=== PATIENT | female | born 1980 | race Caucasian/White ===

== ENCOUNTER 2016-11-13 16:33 | Emergency (ER) | payer OTHER ==
[2016-11-13] MEDS ORDERED: Lidocaine 2% VISCOUS* 15 ML UDC PO ONE (17:21)
[2016-11-13] MEDS ORDERED: Al Hydrox/Mg Hydrox/Simet LIQ* 30 ML UDC PO ONE (17:21)
[2016-11-13] MEDS ORDERED: Ondansetron INJ* 2 MG/ML VIAL IV ONE (17:21)
[2016-11-13 17:34] LABS: Hematocrit 43 % (35-47); Hemoglobin 14.6 g/dl (12.0-16.0); Mean Corpuscular HGB Conc 34 g/dl (31-36); Mean Corpuscular Hemoglobin 27 pg (27-31); Mean Corpuscular Volume 81 fL (80-97); Mean Platelet Volume 7 um3 (7.4-10.4); Red Blood Count 5.32 10^6/ul (4.0-5.4); Red Cell Distribution Width 14 % (10.5-15); White Blood Count 16.8 10^3/ul (3.5-10.8)
--- NOTE | 2016-11-13 17:36 | ED ---
Abdominal Pain/Female - HPI Summary HPI Summary: 36 F w/ no PMH presents with LUQpain for a day. She says the pain radiates up to her chest. She admits to nausea. She denies any vomiting or diarrhea. She had a normal BM at 12 pm. She denies any history of GI issues except for inguinal hernia that was surgical fixed. She does not have a history of GERD. Her children were sick with a GI bug yesterday that resulted in n/v/d. She denies any fever, dysuria, hematuria, blood in stool, or vaginal discharge. She denies any shortness of breath. She does not smoke, no swelling or pain in her calf, no history of blood clots, no history of cancer, no family history of blood clots, no recent travel and is not on an OCP. LMP was a week okay. - History of Current Complaint Chief Complaint: EDAbdPain Stated Complaint: LT SIDE ABD PAIN Time Seen by Provider: 11/13/16 17:13 Pain Intensity: 7 Allergies/Adverse Reactions: Allergies Allergy/AdvReac Type Severity Reaction Status Date / Time Ibuprofen Allergy Bleeding Verified 11/13/16 16:36 PMH/Surg Hx/FS Hx/Imm Hx Endocrine/Hematology History: Reports: Other Endocrine/Hematological Disorders - empty sella syndrome Denies: Hx Diabetes Cardiovascular History: Denies: Hx Hypertension, Hx Pacemaker/ICD Musculoskeletal History: Reports: Hx Bursitis - BILAT HIPS Sensory History: Reports: Hx Contacts or Glasses - GLASSES Denies: Hx Hearing Aid Opthamlomology History: Reports: Hx Contacts or Glasses - GLASSES Psychiatric History: Denies: Hx Panic Disorder - Surgical History Surgery Procedure, Year, and Place: 2 HERNIA SURGERIES A CHILD Hx Anesthesia Reactions: No Infectious Disease History: No Infectious Disease History: Denies: History Other Infectious Disease, Traveled Outside the [place] in Last 30 Days - Family History Known Family History: Positive: Cardiac Disease - nothing below age 50, Other - no history of blood clots - Social History Alcohol Use: Rare Alcohol Amount: WINE ON OCCASION Substance Use Type: Reports: None Smoking Status (MU): Never Smoked Tobacco Review of Systems Negative: Fever Positive: Chest Pain Negative: Shortness Of Breath Positive: Abdominal Pain - LUQ, Nausea. Negative: Vomiting, Diarrhea Negative: dysuria All Other Systems Reviewed And Are Negative: Yes Physical Exam Triage Information Reviewed: Yes Vital Signs On Initial Exam: Initial Vitals Temp Pulse Resp BP Pulse Ox 98.2 F 89 16 126/77 100 11/13/16 16:36 11/13/16 16:36 11/13/16 16:36 11/13/16 16:36 11/13/16 16:36 Vital Signs Reviewed: Yes Appearance: Positive: Pain Distress Skin: Positive: Warm, Dry Head/Face: Positive: Normal Head/Face Inspection Eyes: Positive: Normal, Conjunctiva Clear ENT: Positive: Normal ENT inspection, Pharynx normal, TMs normal Respiratory/Lung Sounds: Positive: Clear to Auscultation, Breath Sounds Present Cardiovascular: Positive: Normal, RRR Abdomen Description: Positive: Soft, Other: - diffuse tenderness greatest in LUQ , no rebound tenderness. Negative: Guarding Bowel Sounds: Positive: Present - [place] Coma Scale Coma Scale Total: 15 Diagnostics - Vital Signs Vital Signs Temp Pulse Resp BP Pulse Ox 11/13/16 16:36 98.2 F 89 16 126/77 100 - Laboratory Result Diagrams: 11/13/16 17:15 11/13/16 17:15 Lab Statement: Any lab studies that have been ordered have been reviewed, and results considered in the medical decision making process. - EKG 1st Cardiac Rate: Tachycardia EKG Rhythm: Sinus Tachycardia ST Segment: Normal Ectopy: None Re-Evaluation - Re-Evaluation First Eval Re-Evaluation Time: 17:45 Change: Improved Comment: no longer nauseous but pain the same Second Eval Re-Evaluation Time: 19:00 Change: Improved Comment: pain is 6/10. Third Eval Re-Evaluation Time: 19:42 Change: Improved Comment: pain is still 4/10 but is ready d/c Abdominal Pain Fem Course/Dx - Course Course Of Treatment: 36 F presents with LUQ pain starting today. Pain radiates to her chest. admits to nausea. denies any vomiting or diarrhea. No SOB. EKG sinus tachycardia likely due to pain as HR 80 after pain medication. Troponin normal so do not suspect ACS. no risk factors for PE: no calf pain or swelling, recent travel, not on OCP, nonsmoker no family history of DVT so do not suspect PE. on exam diffused tenderness but greatest in LUQ. discussed that have seen many patients with week similiar symptoms of abdominal pain and the fact that children had GI bug the day before makes me more likely to think this is viral. WBC elevated but CRP not as elevated. do not suspect gallbladder or appendicitis. Offered CT for definitive study but patient declined. told if pain locailized to RLQ or RUQ to return. will give zofran for d/c home. Patient agrees with plan - Diagnoses Differential Diagnosis: Positive: Appendicitis, Gall Bladder Disease, Pancreatitis, Urinary Tract Infection Provider Diagnoses: Abdominal pain Discharge - Discharge Plan Condition: Stable Disposition: HOME Prescriptions: Ondansetron ODT TAB* [Zofran Odt TAB*] 4 mg PO Q6H PRN #16 tab.odt PRN Reason: Nausea Patient Education Materials: Acute Abdominal Pain (ED) Referrals: Andrew Steele RPA [Primary Care Provider] - Additional Instructions: Can take Zofran every 6 hours as needed for nausea Drink small amounts of fluid as tolerated When able to eat follow BRAT diet: Bananas, rice, applesauce, toast Take Tylenol for pain as needed every 6 hours Follow up with primary within 5 days Return to ED if abdominal pain that localizes to right lower or upper quadrant or any new or worsening symptoms
[2016-11-13 18:01] LABS: Albumin 4.3 g/dL (3.2-5.2); BUN/Creatinine Ratio 34.8 (8-20); Calcium 9.4 mg/dL (8.6-10.3); EGFR African American 129.6 (>60); EGFR Non-African American 100.8 (>60); Potassium 3.6 mmol/L (3.5-5.0); Total Bilirubin 0.5 mg/dL (0.2-1.0); Total Protein 7.3 g/dL (6.4-8.9)
[2016-11-13] MEDS ORDERED: NS 0.9% 1000 ML* 1,000 ML IV ONE (18:02)
[2016-11-13] MEDS ORDERED: Morphine INJ* 2 MG/ML 1 ML CARPUJECT IV ONE (18:03)
[2016-11-13] MEDS ORDERED: Morphine INJ* 4 MG/ML 1 ML CARPUJECT IV ONE (18:55)
[2016-11-13] MEDS ORDERED: Ondansetron ODT TAB* 4 MG PO ONE (19:39)
[2016-11-13 20:05] VITALS: BP 109/69
== END 2016-11-13 20:16 | disposition home or self-care (01) ==
LOC: ED 16:33
DX: R10.12 Left upper quadrant pain (principal); R07.9 Chest pain, unspecified; R11.0 Nausea
CPT/HCPCS: 36415; 80053; 83690; 84484; 84702; 85025; 86141; 93005; 96374; 96375; 99283; A9270-GY; J2270; J2405

== ENCOUNTER 2016-11-19 16:43 | Emergency (ER) | payer OTHER ==
[2016-11-19 17:11] VITALS: BP 136/91
== END 2016-11-19 17:50 | disposition left against medical advice (07) ==
LOC: ED 16:43
DX: R10.9 Unspecified abdominal pain (principal); Z53.21 Procedure and treatment not carried out due to patient leaving prior to being seen by health care provider
CPT/HCPCS: 99281

== ENCOUNTER 2017-11-25 06:40 | Day surgery (SDC) | payer OTHER ==
--- NOTE | 2017-11-04 08:58 | HP ---
PREOPERATIVE HISTORY AND PHYSICAL: DATE OF ADMISSION/SURGERY: 11/25/17. - OR EAST DATE OF OFFICE VISIT: 11/01/17 ATTENDING SURGEON: Dr. Nolberto Daniels.* (DICTATED BY EYAD LIZARRAGA) PROCEDURE: Left knee arthroscopy, anterior cruciate ligament reconstruction, possible chondroplasty and quadriceps autograft. CHIEF COMPLAINT: Left knee. HISTORY OF PRESENT ILLNESS: Malini is a 37-year-old female, who is referred to us by Dr. Garcia. She was pushing her car that was stuck in the snow, on when she felt a pop and severe pain in her knee. She had difficulty weightbearing right away. She noted a significant swelling in the knee the next day. She states that she currently has knee pain under her patella and the medial aspect of her knee. It is slowly improving since the injury. She does state that it gives out on her especially with going down stairs and getting out of a car. She does state that her range of motion has improved. She reports intermittent catching. She is taking meloxicam and tramadol to help with the pain. She does not play sports, however, is applying for the academy only to be able to run, jump and cut in the future. She denies any patellar dislocations of the left knee. She denies any prior injuries or surgery to the left knee. She denies numbness, tingling, fever, chills, and is doing well otherwise. PAST MEDICAL HISTORY: Back pain. PAST SURGICAL HISTORY: 1. Hernia repair x2. 2. Right knee arthroscopy. The patient reports nausea and anxiety with anesthesia, otherwise no major complications with anesthesia. MEDICATIONS: 1. Meloxicam 15 mg one by mouth every day. 2. Tramadol 50 mg one by mouth every 6 hours as needed for pain. ALLERGIES: No known drug allergies. FAMILY HISTORY: Positive for diabetes, heart disease, and cancer. SOCIAL HISTORY: She lives with her partner and children. She reports occasional alcohol consumption. She denies tobacco use. She is a inside sales agent at [employer] REVIEW OF SYSTEMS: A 14-point review of systems was reviewed with the patient. Positive for current complaint, otherwise negative. Denies chest pain, shortness of breath, fever, chills, history of bleeding disorder and history of DVT or PE. PHYSICAL EXAMINATION GENERAL: A 37-year-old, well-developed, well-nourished female, in no acute distress. Alert and oriented 3. Appropriate mood and affect. VITALS SIGNS: Height 70, weight 255, pulse 84, blood pressure 118/78, respiratory rate 20, temperature 97.5, BMI 36.6. HEENT: Normocephalic, atraumatic. PERRLA. Throat: Clear. NECK: Supple. PULMONARY: Lungs are clear to auscultation bilaterally. No wheezing, rhonchi, or rales. CARDIO: Regular rate and rhythm. S1, S2. No murmurs, gallops, or rubs. No edema. ABDOMEN: Positive bowel sounds, soft, nontender. MUSCULOSKELETAL: Left lower extremity, the skin is intact. No warmth or erythema. Mild effusion. Tenderness to palpation over the patellar tendon as well as the medial patella facet. Pain with patellar compression. Mild tenderness to palpation over the medial and lateral joint lines. Range of motion 0 to 130 degrees, stable varus and valgus stress. She has got a 2A Alysia with an endpoint. Negative posterior drawer. Mildly positive Carlos' s. Calf is soft and nontender. +2 PT pulse. Sensation intact to light touch distally. Right lower extremity, the skin is intact. No warmth or erythema. Nontender to palpation. Full pain-free range of motion. Stable ligaments. Neurovascularly intact. NEURO: Alert and oriented x3. Cranial nerves grossly intact. Sensation intact to light touch. DIAGNOSTIC STUDIES: X-ray and MRI reveal a [id number] ACL tear with bone bruising over the posterior tibial plateau, increased signal in the posterolateral meniscus and cystic changes in the undersurface of the patella with cartilage loss. IMPRESSION: Left knee anterior cruciate ligament tear, possible meniscus tear, chondromalacia patella and patellar tendonitis. PLAN: Malini is a 37-year-old female, who presented to the clinic with left knee pain and instability due to patellar tendonitis, possible meniscus tear, lesion under her patella as well as patellar tendonitis. Conservative treatment versus surgical treatment was discussed with the patient. It was explained to the patient, she is at 4 to 10 increased risk of osteoarthritis in the future just due to the injury. It was explained to the patient that she has an endpoint on exam, therefore, the instability could improve without surgery; however, the patient does not want to wait. Dr. Daniels recommended doing PT for few weeks to differentiate instability of the ACL versus the patella as the main source of the discomfort for the patient. However, the patient would like to schedule surgery and have it done sooner than later for working purposes. 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 She has agreed to undergo a left knee arthroscopy anterior cruciate ligament reconstruction, possible chondroplasty with quad autograft with Dr. Daniels, on 11/25/17. Risks of surgery to include infection, bleeding, injury to blood vessels, nerves, surrounding structures, stiffness, need for further surgery, DVT, PE, and numbness were discussed with the patient. Graft options were also discussed with the patient and it was decided that the patient would like to do autograft since the recovery is quicker. It was discussed that the patellar tendon is not a great graft option since she has patellar tendonitis. Therefore, the patient would like a quadriceps autograft. Dr. Daniels expressed her concern for not waiting for surgery; however, the patient would like to undergo surgery at this time. She will follow up in 6 to 8 days postop for followup and suture removal. Percocet was sent to the patient's pharmacy for postop pain management. EYAD LIZARRAGA [id number]/[facility] #: [id number] MTDStephane
[~2017-11-25 06:40] MED LIST: Buffered Lidocaine 0.9% SYRIN* 5 ML/SYR SYRINGE INTRADERM ONE; Dexamethasone IV* 4 MG/ML 1 ML (4 MG) IV SLOW PU ONE; Dexamethasone IV* 4 MG/ML 1 ML (4 MG) ONE; Famotidine IV* 10 MG/ML 2 ML (20 mg) IV ONE; Famotidine IV* 10 MG/ML 2 ML (20 mg) ONE; Scopolamine 1.5 mg* PATCH TRANSDERM ONE; ceFAZolin 2 GM in 100 MLS NS (*) BAG IVPB ONE
[2017-11-25] MEDS ORDERED: Lidocaine 2% PF * 5 ML VIAL ONE (06:54)
[2017-11-25] MEDS ORDERED: Midazolam* 1 MG/ML 2 ML VIAL (2 MG) ONE ×2 (06:54→07:37)
[2017-11-25] MEDS ORDERED: Propofol* 10 MG/ML 20 ML BTL IV PUSH ONE ×2 (06:54→09:41)
[2017-11-25] MEDS ORDERED: fentaNYL* 50 MCG/ML 2 ML VIAL (100 MCG VIAL) ONE ×2 (06:54→10:07)
[2017-11-25] MEDS ORDERED: methylPREDNISolone ACETATE 80* 80 MG/ML 1 ML VIAL ONE (07:12)
[2017-11-25] MEDS ORDERED: Lidocaine 1% MPF wEPI 200,000* 30 ML SDV ONE (07:13)
[2017-11-25] MEDS ORDERED: Bupivacaine 0.25% SDV* 30 ML ONE (07:13)
[2017-11-25] MEDS ORDERED: Scopolamine 1.5 mg* PATCH ONE (07:14)
[2017-11-25] MEDS ORDERED: PROCHLORPERAZINE INJ 5 MG/ML 2 ML VIAL IV PRN (08:15)
[2017-11-25] MEDS ORDERED: HYDROmorphone INJ* 1 MG/ML CARPUJECT SYRINGE IV PRN (08:15)
[2017-11-25] MEDS ORDERED: Naloxone* 0.4 MG/ML 1 ML VIAL IV PRN (08:15)
[2017-11-25] MEDS ORDERED: Ondansetron INJ* 2 MG/ML VIAL IV PRN (08:15)
[2017-11-25] MEDS ORDERED: diPHENhydraMINE IV* 50 MG/ML 1 ml VIAL (BENADRYL) IV PRN (08:15)
[2017-11-25] MEDS ORDERED: HYDROmorphone INJ* 1 MG/ML CARPUJECT SYRINGE ONE (08:39)
[2017-11-25] MEDS ORDERED: Ondansetron INJ* 2 MG/ML VIAL ONE (09:42)
[2017-11-25] MEDS: fentaNYL* 50 MCG/ML 2 ML VIAL (100 MCG VIAL) IV PRN ×2 (10:11→10:39)
[2017-11-25] MEDS ORDERED: PROCHLORPERAZINE INJ 5 MG/ML 2 ML VIAL ONE (10:16)
[2017-11-25] MEDS ORDERED: oxyCODONE/Acetamin 5/325 MG* TAB ONE (10:48)
[2017-11-25] MEDS: oxyCODONE/Acetamin 5/325 MG* TAB PO PRN ×2 (10:50→10:53)
[2017-11-25 11:36] VITALS: BP 147/83
[2017-11-28] MEDS ORDERED: Scopolamine PATCH Remove* 1 NOTE MISC PATCH OFF ONE (06:00)
--- NOTE | 2017-11-30 11:19 | OP ---
CC: PCP OPERATIVE REPORT: DATE OF OPERATION: 11/25/17 DATE OF : 78 SURGEON: Nolberto Daniels MD COOPERATIVE EDUCATION COORDINATOR: EYAD Dasilva Utilization Review Coordinator was needed for the entire case to help with positioning, retraction, and was utilized throughout all portions of the case. ANESTHESIOLOGIST: Dr. Roberson. ANESTHESIA: General. PRE-OP DIAGNOSIS: Left knee grade 3 ACL rupture with medial meniscus tear. POST-OP DIAGNOSES: Grade 3 ACL rupture with patellar chondrosis, intact medial meniscus, lateral meniscal fraying with lateral tibial plateau chondrosis. OPERATIVE PROCEDURE: Left knee arthroscopy with ACL reconstruction using quad autograft, partial lateral meniscectomy, chondroplasty of the lateral tibial plateau and patellofemoral joint. COMPLICATIONS: None. ESTIMATED BLOOD LOSS: Minimal. TOURNIQUET TIME: 24 minutes at 250 mmHg. IMPLANTS USED: One [employer] SoftSilk 7 x 25 and one 10 x 25 mm BioComposite screw. INDICATIONS: Malini Christensen is a 37-year-old female who sustained an injury to her knee while she was pushing her car in early September. She failed conservative management. She has persistent instability of the knee and swelling. She has tried a short course of physical therapy and would like to proceed with surgical treatment. The risks and benefits of surgery were discussed at length to include, but are not limited to, bleeding, infection, damage to nerves, vessels, surrounding structures, wound nonhealing, persistent pain, need for further surgery, scarring, stiffness, incomplete relief of symptoms, and risks of anesthesia. DESCRIPTION OF PROCEDURE: The patient was greeted in the preoperative area by the attending surgeon. The correct extremity was marked, and the consent was confirmed. The patient was brought back to the operating suite. She was placed in the supine position on the operating room table. She underwent general anesthesia and LMA intubation, after which she was appropriately positioned on the bed. The lateral post was positioned as well as a small 10- pound sand bag at the end of the bed to keep the knee at 90. The left leg was then prepped and draped in the usual sterile fashion beginning with chlorhexidine soap, scrub, and alcohol wipe, and a final prep with ChloraPrep. After appropriate surgical pause indicating site, side, procedure, and administration of antibiotics, the knee was intra-articularly injected with 1% lidocaine with epi. An Esmarch was used to exsanguinate the limb. A sterile tourniquet was then placed and was inflated to 250 mmHg. A midline incision centered over the quadriceps tendon distally was then made with a 15 blade. Soft tissues were carefully dissected to expose the quadriceps tendon. The center 9 mm was harvested in a full-thickness fashion using a 10 blade to a length of about 6 to 10 cm of soft tissue and then 23 mm of bone distally. The bone loss was found to be 9 x 23 to 25 mm. This was harvested using a sagittal saw. An osteotome was used to loosen the block and the graft was then prepared in the back table by the assistant professor of biology surgeon. Total length of the graft was about 8.5 to 9 cm. The assistant professor of biology prepared the graft, the surgeon then closed the quadriceps harvest site in full thickness by the tendon with 0 Vicryl in an interrupted fashion. At this point, the tourniquet was deflated. The knee was placed at 90 degrees. The anterolateral portal was then made sharply with an 11 blade. The scope was introduced into the joint and the joint was examined. There was abundant fat pad present. There was synovitis and inflammation in the joint. Patellofemoral joint had grade 2 changes with unstable flaps. The medial and lateral gutters were examined without any loose debris. The scope was brought into the notch. There was evidence of scarring of the ACL but it was incompetent. The PCL was intact. The scope was brought into the medial compartment. The medial femoral condyle had grade 0 to 1 change. Medial plateau had grade 0 to 1 change. Medial meniscus was probed, found to be intact. The lateral compartment was examined. There were grade 2 changes with unstable flaps of the lateral plateau. Lateral meniscus had fraying as well as partial tearing at the root, which was debrided back using a shaver. The lateral femoral condyle had grade 0 to 1 changes. Attention was then directed to the ACL. The biters and otis were used to remove the ACL fragments. The lateral wall was then skeletonized using electrocautery device on the provisional footprint. The femoral tunnel was then marked with an starting awl . This was then checked by changing the scope from the lateral to the medial compartment. The attention was then directed to the tibial tunnel. With the tib-fib guide set at 50 degrees, a separate incision was made using a 15 blade. The soft tissues were carefully dissected. The tib-fib guide was placed again and the guidewire was drilled to the center of the footprint. Once the guidewire was appropriately positioned, it was overdrilled with size 10 mm full-bore reamer. Excess bone was saved for bone graft to the patellar defect. The tunnel was then carefully rasped and the soft tissue was carefully removed and a carrot was placed to prevent fluid egress. Attention was directed to the femoral tunnel. The knee was hyperflexed. The Iyer [employer] Nephew straight guide was then placed in the center of the footprint. The beath pin was then drilled under arthroscopic visualization in the center of the footprint. This was overdrilled with a 9 mm low profile reamer to the appropriate depth. The excess bone and debris were removed. The tunnel was found to have a good back wall and excess bone was removed. Once we appropriately visualized the notch, the #2 Ethibond suture was then passed through the eyelet of the Beath pin and it was then advanced to the wound and then back through the tibial tunnel. The graft which had been placed on appropriate tension on the back table to remove creep was then brought to the table and passed under arthroscopic visualization and well seated in the femoral tunnel. At this point, a size 7 x 25 mm SoftSilk screw was then used to secure the graft. The knee was then taken through extension and found to have no impingement anteriorly. The knee was then cycled approximately 15 times with no loosening of the graft. The scope was brought back to the joint to check the visualization. The knee was then placed in approximately 20 degrees of flexion with tension on the tibial sutures. The graft was secured with a 10 x 25 mm BioComposite screw. The knee was then taken through range of motion. Alysia was assessed and found to be stable. The scope was brought back to the joint and the ACL was in good position. Final images were obtained. The wounds were copiously irrigated with sterile saline. The quadriceps wound was closed with 2-0 Vicryl and naomi. The portals were closed with 3-0 nylon and the tibial wound was closed with 2-0 Vicryl and 3-0 Monocryl. Sterile dressings were applied. The knee and the wounds were injected with 0.25% Marcaine plain. Sterile dressings were applied as well as a Cryo/Cuff and a hinged knee brace locked at extension. She was awoken from anesthesia, transferred to PACU in stable condition. POSTOPERATIVE PLAN: She will be weightbearing as tolerated. She will start therapy this week. Discharged with pain medication and antibiotics. I will see the patient back in 10 to 14 days. DVT prophylaxis was considered, but deferred due to no previous personal or family history. [id number]/[facility] #: [id number] MTDD
== END 2017-11-25 11:48 | disposition home or self-care (01) ==
LOC: OREAST 06:40
PROVIDERS: ATTEND Orthopaedic Surgery
DX: S83.512A Sprain of anterior cruciate ligament of left knee, initial encounter (principal); S83.282A Other tear of lateral meniscus, current injury, left knee, initial encounter; X50.0XXA Overexertion from strenuous movement or load, initial encounter; Y92.89 Other specified places as the place of occurrence of the external cause; M93.862 Other specified osteochondropathies, left lower leg; Z68.38 Body mass index [BMI] 38.0-38.9, adult; F41.9 Anxiety disorder, unspecified; M17.11 Unilateral primary osteoarthritis, right knee
CPT/HCPCS: 81025; A9270-GY; C1713; J0780; J1040; J1100; J1170; J2001; J2250; J2405; J2704; J3010

== ENCOUNTER 2018-08-11 11:27 | Day surgery (SDC) | payer OTHER ==
--- NOTE | 2018-08-01 18:00 | HP ---
AMENDED REPORT NOW INCLUDES COSIGNER DESIGNATION PREOPERATIVE HISTORY AND PHYSICAL: DATE OF ADMISSION/SURGERY: 08/11/18 DATE OF OFFICE VISIT: 08/01/18 ATTENDING SURGEON: Dr. Nolberto Daniels.* (DICTATED BY EYAD LIZARRAGA) PROCEDURE: Left knee arthroscopic surgery. CHIEF COMPLAINT: Left knee pain. HISTORY OF PRESENT ILLNESS: Malini is a 38-year-old female, who presents to the clinic status post left knee anterior cruciate ligament reconstruction with quadriceps autograft. Her postop course was complicated with continued pain postoperatively due to scar tissue. She has failed conservative measures to include physical therapy and therefore has agreed to undergo left knee arthroscopic surgery with Dr. Daniels on 08/11/18. PAST MEDICAL HISTORY: Back pain. PAST SURGICAL HISTORY: Hernia repair x2, right knee arthroscopy, left knee ACL reconstruction. The patient reports nausea and anxiety with anesthesia, otherwise no major complications. MEDICATIONS: 1. Methocarbamol 750 mg 1 by mouth daily. 2. Bupropion HCl 150 mg 1 by mouth daily. ALLERGIES: NSAIDS. FAMILY HISTORY: Positive for diabetes, heart disease, and cancer. Denies family history of DVT or PE. SOCIAL HISTORY: She lives with her partner and children. She reports occasional alcohol consumption. She denies tobacco use. 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 She denies illegal drug use. REVIEW OF SYSTEMS: A 14-point review of systems was reviewed with the patient. Positive for current complaint, otherwise negative. Denies fever, chills, chest pain, shortness of breath, history of bleeding disorder, history of DVT or PE. PHYSICAL EXAMINATION GENERAL: A 38-year-old well-developed, well-nourished female, in no acute distress. Alert and oriented x3. VITAL SIGNS: Height 70, weight 255, blood pressure 138/86, respiratory rate 18 , BMI 36.6. HEENT: Normocephalic, atraumatic. PERRLA. Throat clear. NECK: Supple. PULMONARY: Lungs are clear to auscultation bilaterally. No wheezing, rhonchi, or rales. CARDIO: Regular rate and rhythm. S1, S2. No murmurs, gallops, or rubs. No edema. ABDOMEN: Positive bowel sounds. Soft, nontender. NEURO: Alert and oriented x3. Cranial nerves grossly intact. MUSCULOSKELETAL: Left lower extremity: Skin is intact. Well-healed incision. Quad atrophy. No warmth or erythema. No effusion. Range of motion 0 to 135. Stable to varus and valgus stress. Stable Alysia and negative posterior drawer. Tenderness to palpation over her incision. +5/5 strength to ankle dorsiflexion and plantarflexion. +2 DP pulse. Sensation intact to light touch distally. DIAGNOSTIC STUDIES: MRI revealed an intact ACL. The meniscus appears intact. She has mild chondromalacia of the patella and some scar tissue anteriorly. ASSESSMENT AND PLAN: The patient is scheduled to undergo a left knee arthroscopic surgery with Dr. Daniels on 08/11/18 for lysis of adhesions. She will follow up 10 to 14 days postop for followup and suture removal. Percocet will be used for postop pain management, Keflex for antibiotic prophylaxis since she has had a prior knee surgery, and Zofran to prevent nausea postoperatively. EYAD LIZARRAGA [id number]/[facility] #: [id number] MTDStephane
[~2018-08-11 11:27] MED LIST changes: -Dexamethasone IV* 4 MG/ML 1 ML (4 MG) IV SLOW PU ONE; -Dexamethasone IV* 4 MG/ML 1 ML (4 MG) ONE; -Famotidine IV* 10 MG/ML 2 ML (20 mg) IV ONE; -Famotidine IV* 10 MG/ML 2 ML (20 mg) ONE; -Scopolamine 1.5 mg* PATCH TRANSDERM ONE; +ceFAZolin 2 GM PREMIX in ORs 2 GM/50 ML BAG IVPB ONE; -ceFAZolin 2 GM in 100 MLS NS (*) BAG IVPB ONE
[2018-08-11] MEDS ORDERED: fentaNYL* 50 MCG/ML 2 ML VIAL (100 MCG VIAL) ONE (12:03)
[2018-08-11] MEDS ORDERED: Midazolam* 1 MG/ML 5 ML VIAL (5 MG) ONE (12:03)
[2018-08-11] MEDS ORDERED: Scopolamine 1.5 mg* PATCH ONE (13:03)
[2018-08-11] MEDS ORDERED: HYDROmorphone INJ1* 1 MG/ML SYRINGE IV PRN (13:04)
[2018-08-11] MEDS ORDERED: Acetaminophen TAB* 325 MG PO PRN (13:04)
[2018-08-11] MEDS ORDERED: Naloxone* 0.4 MG/ML 1 ML VIAL IV PRN (13:04)
[2018-08-11] MEDS ORDERED: DiMENhydriNATE IV* 50 MG/ML VIAL IV PUSH PRN (13:04)
[2018-08-11] MEDS ORDERED: oxyCODONE TAB* 5 MG TAB PO PRN (13:04)
[2018-08-11] MEDS ORDERED: Lidocain 1% EPI 1:100,000 * 30 ML MDV ONE (13:23)
[2018-08-11] MEDS ORDERED: ROPIVACAINE 5 MG/ML 30 ML BTL (0.5%) ONE (13:23)
[2018-08-11] MEDS ORDERED: Scopolamine 1.5 mg* PATCH TRANSDERM SCH (14:00)
[2018-08-11] MEDS ORDERED: Lidocaine 2% PF * 5 ML VIAL ONE (14:23)
[2018-08-11] MEDS ORDERED: diPHENhydraMINE IV* 50 MG/ML 1 ml VIAL (BENADRYL) ONE (14:23)
[2018-08-11] MEDS ORDERED: Propofol* 10 MG/ML 20 ML BTL IV PUSH ONE (14:23)
[2018-08-11] MEDS ORDERED: Ondansetron INJ* 2 MG/ML VIAL ONE (14:23)
[2018-08-11] MEDS ORDERED: Dexamethasone IV* 4 MG/ML 1 ML (4 MG) ONE (14:23)
[2018-08-11] MEDS ORDERED: Ketorolac INJ* 30 MG/ML 1 ML VIAL ONE (14:23)
[2018-08-11] MEDS ORDERED: oxyCODONE/Acetamin 5/325 MG* TAB ONE (15:28)
[2018-08-11 16:21] VITALS: BP 137/83
--- NOTE | 2018-08-18 20:57 | OP ---
DATE OF OPERATION: 08/11/18 [facility] DATE OF : 78 SURGEON: Nolberto Daniels MD FIELD SERVICE ENGINEER: None available. PRE-OP DIAGNOSIS: Left knee impingement with persistent pain. POST-OP DIAGNOSIS: Left knee impingement with persistent pain. OPERATIVE PROCEDURE: Left knee arthroscopy with partial lateral meniscectomy, synovectomy in anteromedial lateral compartment and chondroplasty of the patellofemoral joint. COMPLICATIONS: None. ESTIMATED BLOOD LOSS: Minimal. INDICATIONS: Malini Christensen is a 38-year-old female who underwent an ACL reconstruction with autograft on 11/25/17. She did really well at first and had some issues with quadriceps related pain. She had failed conservative management. An MRI confirmed that the ACL was intact. Risks and benefits were discussed at length, it included but not limited to bleeding; infection; damage to nerves, vessels, surrounding structures; wound nonhealing; persistent pain; need for surgery; scaring; stiffness; incomplete release of symptoms; risks of anesthesia. DESCRIPTION OF PROCEDURE: The patient was greeted in the preoperative area by the attending surgeon, the correct extremity was marked, consent was confirmed. The patient was brought back to the operating suite where she was placed in a supine position. An unsterile tourniquet was placed high on the proximal thigh. A lateral post was positioned. The left leg was then prepped and draped in the usual sterile fashion beginning with chlorhexidine soap, scrub, and alcohol wipe, and a final prep with ChloraPrep. After appropriate surgical pause indicating site, side, procedure, administration of antibiotics, the knee was intra-articularly injected with 1% lidocaine with epi. The anterolateral portal was made sharply with an 11 blade. Scope was introduced into the joint. The joint was examined. The scope was positioned in the joint. The ACL was intact and had healed very well. The medial and lateral compartments were intact. Medial femoral condyle had some areas of erythema, which was from the scar rubbing against it. There were no loose bodies that were apparent. There was a small cyclops lesion from the ACL , which was debrided back using a shaver and a biter. The medial meniscus was intact. The lateral compartment was examined, there was fraying and small radial tear that was debrided back using otis and biters. There were grade 1 to 2 changes of the lateral plateau, grade 0 to 1 changes of the lateral femoral condyle. The patello-femoral joint had grade 0 change to the trochlea and areas of grade 2 changes with unstable flaps along the patella. The unstable flaps were then debrided back. The place of the previous quadriceps harvest was then visualized and there was no obvious scar tissue that was apparent there. There appeared to be a fully healed, no evidence of a quadriceps defect to indicate the patient's pain, but there was moderate amount of scar about the patellar itself medially, laterally, and inferiorly. This was debrided back using the electrocautery device and the shaver. As the knee was taken through range of motion, there was a small area in the trochlea where there was bubbling of the cartilage, but the cartilage was intact. Final images were obtained. The wound was copiously irrigated. The knee was thoroughly lavaged, removed of any loose debris once the synovectomy was completed. The wounds were closed with 3-0 nylon in an interrupted fashion. Sterile dressings were applied, and a Cryo/Cuff. She was awoken from anesthesia and then transferred to the PACU in stable condition. POSTOPERATIVE PLAN: She will be weightbearing as tolerated, range of motion as tolerated, discharged on pain medications as well as antibiotics due to revision surgery. DVT prophylaxis considered, but deferred due to no previous personal or family history. I will see the patient back in 10 to 14 days. [id number]/[facility] #: [id number] GLYNN
== END 2018-08-11 16:16 | disposition home or self-care (01) ==
LOC: OREAST 11:27
PROVIDERS: ATTEND Orthopaedic Surgery
DX: M25.862 Other specified joint disorders, left knee (principal); F41.8 Other specified anxiety disorders; E66.9 Obesity, unspecified
CPT/HCPCS: 81025; A9270-GY; J0690; J1100; J1200; J1885; J2250; J2405; J2704; J2795; J3010

== ENCOUNTER 2023-11-05 21:15 | Inpatient (IN) ==
[2023-11-05] MEDS ORDERED: Al Hydrox/Mg Hydrox/Simet LIQ 30 ML UDC PO PRN (23:28)
[2023-11-06 08:54] LABS: HDL Cholesterol 49.1 mg/dL
[2023-11-06] MEDS: Vitamin THERAPEUTIC TAB PO SCH (09:02)
[2023-11-06] MEDS: DULoxetine DR 30 mg CAP PO SCH (15:10)
[2023-11-07] MEDS: NORETHINDRONE E ESTRADIOL IRON PO SCH (08:44)
[2023-11-07] MEDS: [UNRECOGNIZED DRUG - OTHER] PO SCH (08:44)
[2023-11-07] MEDS: ATOGEPANT 60 MG PO SCH (08:44)
[2023-11-08] MEDS: DULoxetine DR 60 mg CAP PO SCH (09:02)
[2023-11-08 09:50] VITALS: BP 121/83
[2023-12-04] MEDS ORDERED: GALCANEZUMAB 120 MG/ML SUBCUT SCH (09:00)
== END 2023-11-08 13:00 | disposition home or self-care (01) | DRG 754 ==
LOC: ED 21:15 → EDHOLD 23:14 → BSU 11-06 00:19
PROVIDERS: ADMIT Psychiatry & Neurology Psychiatry; ATTEND Psychiatry & Neurology Psychiatry

== ENCOUNTER 2024-03-20 19:23 | Inpatient (IN) ==
[2024-03-20 20:32] LABS: ABS Basophils 0.1 10^3/uL (0.0-0.1); ABS Eosinophils 0.2 10^3/uL (0.0-0.5); ABS Lymphocytes 2.7 10^3/uL (1.0-4.8); ABS Monocytes 0.8 10^3/uL (0.0-0.9); ABS Neutrophils 4.8 10^3/uL (1.5-7.6); Eosinophil % 2.5 %; Hematocrit 40.7 % (35-45); Hemoglobin 13.8 g/dL (11.5-14.3); Lymphocyte % 31.9 %; Mean Corpuscular Hemoglobin 29.8 pg (27-33); Mean Corpuscular Volume 87.8 fL (80-97); Mean Platelet Volume 7.3 fL (7.5-11.2); Platelet Count 365 10^3/uL (150-450); Red Blood Count 4.63 10^6/uL (3.63-4.92); Red Cell Distribution Width 13.3 % (12-17); White Blood Count 8.5 10^3/uL (3.8-11.8)
[2024-03-20 20:38] LABS: Urine Appearance Turbid; Urine Bilirubin Negative (Negative); Urine Blood Negative (Negative); Urine Color Yellow; Urine Glucose Negative (Negative); Urine Ketones Trace (Negative); Urine Nitrite Negative (Negative); Urine Protein Trace (Negative); Urine Specific Gravity 1.028 (1.002-1.030); Urine Urobilinogen Negative (Negative); Urine pH 5.5 (5.0-8.0)
[2024-03-20 20:51] LABS: Urine Benzodiazepine Screen Presumptive Positive (None Detect); Urine Cannabinoids Screen None Detected (None Detect); Urine Opiates Screen None Detected (None Detect)
[2024-03-20 21:45] LABS: ALT 17 U/L (7-52); AST 16 U/L (13-39); Acetaminophen < 15 mcg/mL; Albumin 4.1 g/dL (3.2-5.2); Albumin/Globulin Ratio 1.6 (1-3); Alcohol, S < 13 mg/dL (<13); Alkaline Phosphatase 61 U/L (35-149); Anion Gap 6 mmol/L (2-16); Blood Urea Nitrogen 17 mg/dL (6-24); CO2 Carbon Dioxide 26 mmol/L (22-32); Calcium 9.4 mg/dL (8.6-10.3); Chloride 106 mmol/L (101-111); Creatinine, Serum 0.84 mg/dL (0.51-0.95); Globulin 2.5 g/dL (2-4); Glucose 87 mg/dL (70-100); Potassium 4.5 mmol/L (3.5-5.0); Salicylate < 2.50 mg/dL (<30); Sodium 138 mmol/L (135-145); Total Bilirubin 0.5 mg/dL (0.2-1.0); Total Protein 6.6 g/dL (6.4-8.9); eGFR CKD-EPI 87.3 (>60)
[2024-03-20 21:58] LABS: TSH Ultra Thyroid Stim Horm 0.05 mcIU/mL (0.34-5.60)
[2024-03-20] MEDS ORDERED: Al Hydrox/Mg Hydrox/Simet LIQ 30 ML UDC PO PRN (22:19)
[2024-03-21] MEDS ORDERED: Ondansetron ODT 4 mg TAB 4 MG TAB PO PRN (00:50)
[2024-03-21] MEDS: DULoxetine DR 60 mg CAP PO SCH (01:22)
[2024-03-21 08:28] LABS: HDL Cholesterol 57.7 mg/dL
[2024-03-21] MEDS: Vitamin THERAPEUTIC TAB PO SCH (10:00)
[2024-03-21] MEDS ORDERED: Doxepin 3 mg TAB (NF) PO SCH (21:00)
[2024-03-21] MEDS: CMCS:Doxepin 10 mg CAP (NF) PO SCH (21:20)
[2024-03-23 08:27] VITALS: BP 122/87
== END 2024-03-23 11:29 | disposition home or self-care (01) | DRG 754 ==
LOC: ED 19:23 → EDHOLD 22:12 → BSU 22:47
PROVIDERS: ADMIT Student in an Organized Health Care Education/Training Program; ATTEND Student in an Organized Health Care Education/Training Program